=== PATIENT | female | born 2000 | race Caucasian/White ===

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

== ENCOUNTER → 2020-01-01 | Emergency (ER) | payer OTHER ==
[~2020-01-01] VITALS: Ht 165.1 cm; Wt 79.8 kg
[~2020-01-01] MED LIST changes: +DICYCLOMINE HCL10 MG PO; +SPRINTEC1 EACH PO; +ZOFRAN4 MG PO
--- OUTSIDE RECORDS SUMMARY | ~2020-01-01 | XMS | Encounter Summary ---
Demographics + + + | Address | [address] | | | [place] [address] | + + + | Home Phone | | + + + | Preferred Language | Unknown | + + + | Marital Status | Single | + + + | Mosque Affiliation | Unknown | + + + | Race | Unknown | + + + | Ethnic Group | Unknown | + + + Author + + + | Author | [facility] | | | and [place] | + + + | Organization | [facility] | | | and [place] | + + + | Address | Unknown | + + + | Phone | Unavailable | + + + Support + + +---------+ + | Name | Relationship | Address | Phone | + + +---------+ + | Laurie Srivastava | ECON | Unknown | | | Jimbo Latif | | | | + + +---------+ + Care Team Providers + +------+ + | Care Operating Room Specialist Name | Role | Phone | + +------+ + PCP | Unavailable | + +------+ + Encounter Details +--------+ + + + + | Date | Type | Department | Care Team | Description | +--------+ + + + + | 09/07/ | Hospital | [facility] | Marbin Chino MD | | | 2000 - | Encounter | MED CTR NURSE | [address] [facility] | | | | | [address] | [place] | | | 09/08/ | | [place] [address] | [id number] | | | 2000 | | [phone] | | | +--------+ + + + + Social History + +-------+ +--------+------+ | Tobacco Use | Types | Packs/Day | Years | Date | | | | | Used | | + +-------+ +--------+------+ | Never Assessed | | | | | + +-------+ +--------+------+ + + + | Sex Assigned at | Date Recorded | | | | + + + | Not on file | | + + + documented as of this encounter Plan of Treatment Not on filedocumented as of this encounter Visit Diagnoses Not on filedocumented in this encounter"
--- OUTSIDE RECORDS SUMMARY | ~2020-01-01 | XMS | Clinical Summary ---
Demographics + + + | Address | [address] | | | [place] [address] | + + + | Home Phone | | + + + | Preferred Language | Unknown | + + + | Marital Status | Single | + + + | Jain Affiliation | Unknown | + + + | Race | Unknown | + + + | Ethnic Group | Unknown | + + + Author + + + | Author | [facility] | | | and [place] | + + + | Organization | [facility] | | | and [place] | [...] Team Providers + +------+ + | Care Wire Spinner Name | Role | Phone | + +------+ + PCP | Unavailable | + +------+ + Allergies Not on File Medications Not on file Active Problems Not on file Social History + +-------+ +--------+------+ | Tobacco [...] on file | | + + + Last Filed Vital Signs Not on file Plan of Treatment + + +-------+ + | Health Maintenance | Due Date | Last | Comments | | | | Done | | + + +-------+ + | Well Child Check | | | | | | 4 | | | + + +-------+ + | Vaccine: HPV (1 - | | | | | 2-dose series) | 2 | | | + + +-------+ + | Vaccine: | | | | | Dtap/Tdap/Td (1 - | 0 | | | | Tdap) | | | | + + +-------+ + | Vaccine: Influenza | | | | | (#1) | 0 | | | + + +-------+ + Results Not on filefrom Last 3 Months"
--- OUTSIDE RECORDS SUMMARY | 2020-01-01 11:46 | XMS ---
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 Care History Medical/Surgical 09/03/2019 [facility] I spoke with patient - she has a history of no shows in clinic.\T\nbsp; I advised to establish care with a PCP, if not here then [facility].\ T\nbsp; Advised of appropriate use of ED, life and limb use.\T\nbsp; Patient hung up on me. 04/11/2019 [facility] Patient reported to ED after clinic hours.\T\nbsp; Patient will schedule follow up with Cely Mariee. 04/28/2018 [facility] - Patient is currently established with [facility]. If patient is seen in the ED during business hours. Please contact CHWs at [facility]. Care Recommendation: If this patient has had [...] care. E.D. VISIT COUNT (12 MO.) 5 [facility] TOTAL 5 NOTE: Visits indicate total known visits. ED/UCC VISIT TRACKING (12 MO.) 01/01/2020 11:44 [facility] [place] TYPE: Emergency COMPLAINT: - DIZZY, SOB, TIRED 09/01/2019 23:10 [facility] [place] TYPE: Emergency COMPLAINT: - LEG CRAMP,ABD PAIN DIAGNOSES: - Nicotine dependence, unspecified, uncomplicated - Left lower quadrant pain - Cramp and spasm 05/15/2019 18:28 [facility] [place] [facility] [place] TYPE: Emergency COMPLAINT: - COUGH, STOMACH PAIN, CHEST CONGESTION, MSE TO HOME DIAGNOSES: - Other specified symptoms and signs involving the circulatory - Cough - Unspecified abdominal pain 04/10/2019 20:07 [facility] [place] TYPE: Emergency COMPLAINT: - EYE INJURY DIAGNOSES: - Nicotine dependence, unspecified, uncomplicated - Local infection of the skin and subcutaneous tissue, unspecif 01/13/2019 19:08 [facility] [place] TYPE: Emergency COMPLAINT: - ABD PAIN, VAGINAL BLEEDING DIAGNOSES: - Other half-way (current) drug therapy - Nicotine dependence, unspecified, uncomplicated - Abnormal uterine and vaginal bleeding, unspecified - Pelvic and perineal pain INPATIENT VISIT TRACKING (12 MO.) No inpatient visits to display in this time frame [id number]
== END ==
LOC: ED 11:43
DX: B34.9 Viral infection, unspecified (principal); Z87.891 Personal history of nicotine dependence; Z79.899 Other long term (current) drug therapy
CPT/HCPCS: 71045; 80053; 81001; 84703; 85025; 96374; 96375; 99284-25; J1885; J2405; J7030

== ENCOUNTER 2020-11-14 14:23 | Inpatient (IN) | payer OTHER ==
[~2020-11-14] VITALS: Ht 160 cm; Wt 97.5 kg
--- NOTE | 2020-11-15 12:02 | PR ---
[facility] [address] [place], [place] [address] Signed PP Progress Notes Datetime Report Generated by CPN: 11/15/2020 12:02 SUBJECTIVE: [id number] Pain: Within Normal Limits Nausea/Vomiting: Denies Flatus: No Bowel Movement: No Vital Signs: [id number] Vital Signs: Reviewed; Within Normal Limits Cardiovascular: Normal Respiratory: Normal Abdomen/Uterus: Normal Lochia: Normal Breasts: Normal Extremities: Normal Exam Comments: NAD, resting in bed RRR No dyspnea/retractions Abd SNDNT, FFBU Ext: 1+ BLLE pitting edema, Neg Bay's BL IMPRESSION/PLAN/PROCEDURES: [id number] Impression: Normal Progression Plan: Continue Present Management Progress Notes: PPD#1 s/p EIOL @ 39.3 weeks gestation Progressing well : regular diet, bottle feeding baby, cramps well controlled with motrin Hoping to go home either tonight @ 24 hours or tomorrow Has first appt scheduled with [facility] 11/26. Signing Physician: Fazal Reeves DO Copies: ~ *Electronically Signed* 11/15/20 1202 FAZAL REEVES DO PATIENT NAME: ALLIE MORENO PROGRESS NOTE DATE OF : 00 PHYSICIAN: FAZAL REEVES DO RPT #: [id number] REPORT IS CONFIDENTIAL AND NOT TO BE RELEASED WITHOUT AUTHORIZATION
--- NOTE | 2020-11-16 10:13 | PR ---
[facility] [address] [place], [place] [address] Signed PP Progress Notes Datetime Report Generated by CPN: 11/16/2020 10:13 SUBJECTIVE: [id number] Pain: Within Normal Limits Nausea/Vomiting: Denies Flatus: Yes Bowel Movement: Yes Vital Signs: [id number] Vital Signs: Reviewed; Within Normal Limits Cardiovascular: Normal Respiratory: Normal Abdomen/Uterus: Normal Lochia: Normal Vulva/Perineum: Not Done Breasts: Not Done CVA Tenderness: Normal Extremities: Normal Incision: Not Applicable Progress: Not Applicable Exam Comments: Fundus firm U-2 nontender IMPRESSION/PLAN/PROCEDURES: [id number] Impression: Normal Progression Plan: Discharge Progress Notes: Pt seen and examined. Doing well. Ambulating, voiding, and tolerating full diet. Pain and lochia minimal. Bottlefeeding well. No fevers/chills or other concerns. Planning OCPs for pp contraception. No other questions or concerns. Desires d/c home. Signing Physician: Fazal Reeves DO Copies: ~ *Electronically Signed* 11/16/20 1013 FAZAL REEVES DO PATIENT NAME: ALLIE MORENO PROGRESS NOTE DATE OF : 00 PHYSICIAN: FAZAL REEVES DO RPT #: [id number] REPORT IS CONFIDENTIAL AND NOT TO BE RELEASED WITHOUT AUTHORIZATION
== END 2020-11-16 10:40 | disposition home or self-care (01) | DRG 807 ==
LOC: FBC 14:23
PROVIDERS: ADMIT Obstetrics & Gynecology; ATTEND Obstetrics & Gynecology
PROC: 10E0XZZ Delivery of Products of Conception, External Approach (ICD-10-PCS; principal; 2020-11-14)
PROC: 10907ZC Drainage of Amniotic Fluid, Therapeutic from Products of Conception, Via Natural or Artificial Opening (ICD-10-PCS; 2020-11-14)
PROC: 0HQ9XZZ Repair Perineum Skin, External Approach (ICD-10-PCS; 2020-11-14)
PROC: 3E0R3BZ Introduction of Anesthetic Agent into Spinal Canal, Percutaneous Approach (ICD-10-PCS; 2020-11-14)
PROC: 00HU33Z Insertion of Infusion Device into Spinal Canal, Percutaneous Approach (ICD-10-PCS; 2020-11-14)
DX: O62.3 Precipitate labor (principal); Z37.0 Single live birth; O99.214 Obesity complicating childbirth; O70.0 First degree perineal laceration during delivery; E66.9 Obesity, unspecified; O69.81X0 Labor and delivery complicated by cord around neck, without compression, not applicable or unspecified; Z3A.39 39 weeks gestation of pregnancy; Z87.891 Personal history of nicotine dependence
CPT/HCPCS: 01960; 85027; J2590; J2795; J3010; J7121

== ENCOUNTER 2022-06-24 08:24 | Inpatient (IN) | payer OTHER ==
[~2022-06-24] VITALS: Ht 160 cm; Wt 102.1 kg
--- NOTE | 2022-06-24 12:00 | NUR ---
RT COLLECTED RAPID COVID 19 SWAB AT THIS TIME WITH NO COMPLICATIONS.
[2022-06-24 15:49] VITALS: BP 108/53
--- NOTE | 2022-06-25 17:11 | PR ---
[facility] [address] [place], [place] [address] Signed PP Progress Notes Datetime Report Generated by KAYLAN: 06/25/2022 17:11 SUBJECTIVE: [id number] Pain: Within Normal Limits Nausea/Vomiting: Denies Flatus: Yes Vital Signs: [id number] Vital Signs: Reviewed Notable Details: isolated elevated BP at 0454, not severe Cardiovascular: Normal Respiratory: Normal Abdomen/Uterus: Normal Extremities: Normal (Annotations: Data stored by N on behalf of user) Progress: Not Applicable Exam Comments: NAD, sitting up in bed RRR No dyspnea/ retractions Abd SNTND, FFBU, heating pad in place Ext: Trace edema BLLE IMPRESSION/PLAN/PROCEDURES: [id number] Impression: Normal Progression Plan: Continue Present Management Progress Notes: 21 yo PPD#1 s/p Uncomplicated -admitted for spontaneous labor -h/o missing IUD at time of conception, ultrasound negative. A/P abdominal x-ray negative for foreign body/ IUD, lateral view read pending -hgb 10.8 from 12.4 Progressing well . Cramping well controlled with ibuprofen, norco, heat pack. Requesting stay one more night. Lochia light, formula feeding. Anticipate DC to home tomorrow Signing Physician: Fazal Reeves DO Copies: ~ *Electronically Signed* 06/25/22 8802 FAZAL REEVES DO PATIENT NAME: ALLIE MORENO PROGRESS NOTE DATE OF : 00 PHYSICIAN: FAZAL REEVES DO RPT #: [id number] REPORT IS CONFIDENTIAL AND NOT TO BE RELEASED WITHOUT AUTHORIZATION
--- NOTE | 2022-06-26 09:20 | PR ---
[facility] [address] [place], [place] [address] Signed PP Progress Notes Datetime Report Generated by CPKatia: 06/26/2022 09:20 SUBJECTIVE: [id number] Pain: Within Normal Limits Nausea/Vomiting: Denies Flatus: Yes Vital Signs: [id number] Vital Signs: Reviewed Notable Details: mild elevation BP Cardiovascular: Not Done Respiratory: Not Done Abdomen/Uterus: Abnormal Lochia: Normal Vulva/Perineum: Not Done Breasts: Not Done CVA Tenderness: Not Done Extremities: Normal Incision: Not Applicable Progress: Not Applicable Exam Comments: Fundus firm, NT @ U-2. IMPRESSION/PLAN/PROCEDURES: [id number] Impression: Normal Progression Plan: Discharge Procedures: None Progress Notes: Doing well overall. I think she is stable for D/C. Signing Physician: Manuela Love MD Copies: ~ *Electronically Signed* 06/26/22919 MANUELA LOVE MD PATIENT NAME: ALLIE MORENO PROGRESS NOTE DATE OF : 00 PHYSICIAN: MANUELA LOVE MD RPT #: [id number] REPORT IS CONFIDENTIAL AND NOT TO BE RELEASED WITHOUT AUTHORIZATION
== END 2022-06-26 11:50 | disposition home or self-care (01) | DRG 807 ==
LOC: FBCO 08:24 → FBC 11:40
PROVIDERS: ADMIT Obstetrics & Gynecology; ATTEND Obstetrics & Gynecology
PROC: 10E0XZZ Delivery of Products of Conception, External Approach (ICD-10-PCS; principal; 2022-06-24)
PROC: 10907ZC Drainage of Amniotic Fluid, Therapeutic from Products of Conception, Via Natural or Artificial Opening (ICD-10-PCS; 2022-06-24)
PROC: 00HU33Z Insertion of Infusion Device into Spinal Canal, Percutaneous Approach (ICD-10-PCS; 2022-06-24)
PROC: 3E0234Z Introduction of Serum, Toxoid and Vaccine into Muscle, Percutaneous Approach (ICD-10-PCS; 2022-06-24)
DX: O99.214 Obesity complicating childbirth (principal); Z37.0 Single live birth; Z67.10 Type A blood, Rh positive; Z20.822 Contact with and (suspected) exposure to COVID-19; O99.824 Streptococcus B carrier state complicating childbirth; O69.81X0 Labor and delivery complicated by cord around neck, without compression, not applicable or unspecified; O99.02 Anemia complicating childbirth; D64.9 Anemia, unspecified
CPT/HCPCS: 01960; 36415; 59025; 74018; 80053; 82565; 82570; 83615; 84156; 84550; 85027; 85060; 86850; 86900; 86901; 87502; A9270; C9803; G0463; J2540; J2590; J2795; J3010; J7121; U0003

== ENCOUNTER 2022-09-23 11:16 | Emergency (ER) | payer OTHER ==
[~2022-09-23] VITALS: Ht 152.4 cm; Wt 92.9 kg
--- OUTSIDE RECORDS SUMMARY | ~2022-09-23 | XMS | Continuity of Care Document ---
Demographics + + + | Address | [address] | | | [place] [address] | + + + | Preferred Language | Unknown | + + + | Marital Status | Never | + + + | Holiness Affiliation | Unknown | + + + | Race | White | + + + | Ethnic Group | Not or | + + + Author + + + | Author | [facility] | + + + | Organization | [facility] | + + + | Address | [address] | | | [place] [address] | + + + | Phone | | + + + Care Team Providers + + + + | Care Mobile Pet Groomer Name | Role | Phone | + + + + Unavailable | Unavailable | + + + + Unavailable | Unavailable | + + + + Allergies No information. Encounters No information. Functional Status No information. Immunizations No information. Medications + + + + | date | description | facility | + + + + | 2020-01-01 00:00 | ONDANSETRON HCL | [facility] | + + + + | 2019-04-10 00:00 | DOXYCYCLINE HYCLATE | [facility] | + + + + | 2015-12-06 00:00 | IBUPROFEN | [facility] | + + + + | 2022-06-26 00:00 | IBUPROFEN | [facility] | + + + + | 2018-04-27 00:00 | OMEPRAZOLE | [facility] | + + + + | 2022-06-26 00:00 | FLUCONAZOLE | [facility] | + + + + | 2019-04-10 00:00 | TOBRAMYCIN | [facility] | + + + + | 2022-06-26 00:00 | ACETAMINOPHEN | [facility] | + + + + | 2022-06-26 00:00 | NORGESTIMATE-ETHINYL | [facility] | | | ESTRADIOL | | + + + + | 2019-01-13 00:00 | TRAMADOL HCL | [facility] | + + + + | 2015-12-06 00:00 | HYDROCODONE | [facility] | | | BIT/ACETAMINOPHEN | | + + + + | 2020-01-01 00:00 | DICYCLOMINE HCL | [facility] | + + + + Problems + + + + | date | description | facility | + + + + | 2014-03-06 00:00 | Patient left without being | [facility] | | | seen | | + + + + | 2014-03-08 00:00 | Low back pain | [facility] | + + + + | 2014-12-18 00:00 | Chronic low back pain | [facility] | + + + + | 2015-12-06 00:00 | Laceration of left earlobe | [facility] | | | | | + + + + | 2015-12-06 00:00 | Laceration of left cheek | [facility] | + + + + | 2015-12-06 00:00 | Sprain of left shoulder | [facility] | + + + + | 2015-12-19 00:00 | Encounter for removal of | [facility] | | | sutures | | + + + + | 2016-12-31 00:00 | Vaginal bleeding | [facility] | + + + + | 2018-04-27 00:00 | Peptic disease | [facility] | + + + + | 2018-10-17 00:00 | Sprain of right wrist | [facility] | + + + + | 2019-01-13 00:00 | Abnormal uterine bleeding | [facility] | + + + + | 2019-05-15 00:00 | Encounter for medical | [facility] | | | screening examination | | + + + + | 2019-09-02 00:00 | Abdominal pain | [facility] | + + + + | 2019-09-02 00:00 | Muscle cramps | [facility] | + + + + | 2020-01-01 00:00 | Viral infection | [facility] | + + + + Procedures No information. Results/Labs +--------+--------+ +---------+--------+---------+ | test | date | facility | value | unit | notes | +--------+--------+ +---------+--------+---------+ + + | Result panel 1 | + + + + + + +---------+ + | | 2022-06-24 | [facility] | 152.81 | mg/dL | (missing) | | (unavailable | 09[facility]:07 [facility] | | | + + + + +---------+ + + + | Result panel 2 | + + + + + + + + + | | 2022-06-24 | [facility] | 0.1500 | (missing) | (missing) | | (unavailable | [facility]00:07 [facility] | | | | + + + + + + + + + | Result panel 3 | + + + + + +------+---------+ + | | 2022-06-24 | [facility] | 23 | mg/dL | (missing) | | (unavailable | [facility]00:07 [facility] | | | | + + + +------+---------+ + + + | Result panel 4 | + + + + + + + + + | | 2022-06-24 | [facility] | NEGATIVE | (missing) | (missing) | | (unavailable | [facility]00:07 [facility] | | | | + + + + + + + + + | Result panel 5 | + + + + + + + + + | | 2022-06-24 | [facility] | NEGATIVE | (missing) | (missing) | | (unavailable | [facility]00:07 [facility] | | | | + + + + + + + + + | Result panel 6 | + + + + + + + + + | | 2022-06-24 | [facility] | NEGATIVE | (missing) | (missing) | | (unavailable | [facility]00:07 [facility] | | | | + + + + + + + + + | Result panel 7 | + + + + + + + + + | | 2022-06-24 | [facility] | NEGATIVE | (missing) | (missing) | | (unavailable | [facility]:00:07 [facility] | | | | + + + + + + + + + | Result panel 8 | + + + + + + + + + | | 2022-06-24 | [facility] | NEGATIVE | (missing) | (missing) | | (unavailable | 09[facility]00:07 [facility] | | | | + + + + + + + + + | Result panel 9 | + + + + + + + + + | | 2022-06-24 | [facility] | NEGATIVE | (missing) | (missing) | | (unavailable | 09[facility]00:07 [facility] | | | | + + + + + + + + + | Result panel 10 | + + + + + + + + + | | 2022-06-24 | [facility] | NEGATIVE | (missing) | (missing) | | (unavailable | [facility]00:07 [facility] | | | | + + + + + + + + + | Result panel 11 | + + + + + + + + + | | 2022-06-24 | [facility] | NEGATIVE | (missing) | (missing) | | (unavailable | [facility]00:07 [facility] | | | | + + + + + + + + + | Result panel 12 | + + + + + + + + + | | 2022-06-24 | [facility] | NEGATIVE | (missing) | (missing) | | (unavailable | 09:00:07 [facility] | | | | + + + + + + + + + | Result panel 13 | + + + + + + + + + | | 2022-06-24 | [facility] | NEGATIVE | (missing) | (missing) | | (unavailable | [facility]00:07 [facility] | | | | + + + + + + + + + | Result panel 14 | + + + + + + + + + | | 2022-06-24 | [facility] | NEGATIVE | (missing) | (missing) | | (unavailable | 09[facility]00:07 [facility] | | | | + + + + + + + + + | Result panel 15 | + + + + + + + + + | | 2022-06-24 | [facility] | NEGATIVE | (missing) | (missing) | | (unavailable | 09:00:07 [facility] | | | | + + + + + + + + + | Result panel 16 | + + + + + + + + + | | 2022-06-24 | [facility] | NEGATIVE | (missing) | (missing) | | (unavailable | 09:00:07 [facility] | | | | + + + + + + + + + | Result panel 17 | + + + + + + + + + | | 2022-06-24 | [facility] | NEGATIVE | (missing) | (missing) | | (unavailable | 12:00:07 [facility] | | | | + + + + + + + + + | Result panel 18 | + + + + + + + + + | | 2022-06-24 | [facility] | NEGATIVE | (missing) | (missing) | | (unavailable | 12:00:07 [facility] | | | | + + + + + + + + + | Result panel 19 | + + + + + + + + + | | 2022-06-24 | [facility] | NEGATIVE | (missing) | (missing) | | (unavailable | 12:00:07 [facility] | | | | + + + + + + + + + | Result panel 20 | + + + + + + + + + | | 2022-06-24 | [facility] | NEGATIVE | (missing) | (missing) | | (unavailable | 12:00:07 [facility] | | | | + + + + + + + + + | Result panel 21 | + + + + + + + + + | | 2022-06-24 | [facility] | SEE | (missing) | (missing) | | (unavailable | 12::07 | [facility] COMMENTS | | | | ) | | Hospital | | | | + + + + + + + + + | Result panel 22 | + + + + + +------+ + + | | 2022-06-24 | [facility] | 20 | (missing) | (missing) | | (unavailable | 12::07 [facility] | | | | + + + +------+ + + + + | Result panel 23 | + + + + + +--------+ + + | | 2022-06-24 | [facility] | 15.9 | (missing) | (missing) | | (unavailable | 12::07 [facility] | | | | + + + +--------+ + + + + | Result panel 24 | + + + + + +-------+---------+ + | | 2022-06-24 | [facility] | 4.7 | mg/dL | (missing) | | (unavailable | 12::07 [facility] | | | | + + + +-------+---------+ + + + | Result panel 25 | + + + + + +-------+---------+ + | | 2022-06-24 | [facility] | 9.0 | mg/dL | (missing) | | (unavailable | 12::07 [facility] | | | | + + + +-------+---------+ + + + | Result panel 26 | + + + + + +-------+ + + | | 2022-06-24 | [facility] | 6.9 | (missing) | (missing) | | (unavailable | 12:05:07 [facility] | | | | + + + +-------+ + + + + | Result panel 27 | + + + + + +-------+ + + | | 2022-06-24 | [facility] | 3.0 | (missing) | (missing) | | (unavailable | 12::07 [facility] | | | | + + + +-------+ + + + + | Result panel 28 | + + + + + +-------+ + + | | 2022-06-24 | [facility] | 3.9 | (missing) | (missing) | | (unavailable | :07 | [facility] | | | | + + + +-------+ + + + + | Result panel 29 | + + + + + +--------+ + + | | 2022-06-24 | [facility] | 0.77 | (missing) | (missing) | | (unavailable | ::07 | [facility] | | | | + + + +--------+ + + + + | Result panel 30 | + + + + + +-------+ + + | | 2022-06-24 | [facility] | 0.4 | (missing) | (missing) | | (unavailable | 12::07 [facility] | | | | + + + +-------+ + + + + | Result panel 31 | + + + + + +------+ + + | | 2022-06-24 | [facility] | 20 | (missing) | (missing) | | (unavailable | 12:05:07 [facility] | | | | + + + +------+ + + + + | Result panel 32 | + + + + + +------+---------+ + | | 2022-06-24 | [facility] | 82 | mg/dL | (missing) | | (unavailable | 12:05:07 [facility] | | | | + + + +------+---------+ + + + | Result panel 33 | + + + + + +------+ + + | | 2022-06-24 | [facility] | 17 | (missing) | (missing) | | (unavailable | ::07 | [facility] | | | | + + + +------+ + + + + | Result panel 34 | + + + + + +-------+ + + | | 2022-06-24 | [facility] | 187 | (missing) | (missing) | | (unavailable | 12:05:07 [facility] | | | | + + + +-------+ + + + + | Result panel 35 | + + + + + +-------+ + + | | 2022-06-24 | [facility] | 195 | (missing) | (missing) | | (unavailable | 12:05:07 [facility] | | | | + + + +-------+ + + + + | Result panel 36 | + + + + + +-----+---------+ + | | 2022-06-24 | [facility] | 6 | mg/dL | (missing) | | (unavailable | 12:05:07 [facility] | | | | + + + +-----+---------+ + + + | Result panel 37 | + + + + + +--------+---------+ + | | 2022-06-24 | [facility] | 0.54 | mg/dL | (missing) | | (unavailable | [facility] | | | | + + + +--------+---------+ + + + | Result panel 38 | + + + + + +-----+ + + | | 2022-06-24 | [facility] | A | (missing) | (missing) | | (unavailable | [facility] | | | | + + + +-----+ + + + + | Result panel 39 | + + + + + + + + + | | 2022-06-24 | [facility] | POSITIVE | (missing) | (missing) | | (unavailable | 12::07 [facility] | | | | + + + + + + + + + | Result panel 40 | + + + + + + + + + | | 2022-06-24 | [facility] | NEGATIVE | (missing) | (missing) | | (unavailable | 12::07 [facility] | | | | + + + + + + + + + | Result panel 41 | + + + + + + + + + | | 2022-06-24 | [facility] | BLOOD IN | (missing) | (missing) | | (unavailable | 12:05:07 [facility] | | | | + + + + + + + + + | Result panel 42 | + + + + + +-------+ + + | | 2022-06-24 | [facility] | 134 | (missing) | (missing) | | (unavailable | 12:05:07 [facility] | | | | + + + +-------+ + + + + | Result panel 43 | + + + + + +---------+ + + | | 2022-06-24 | [facility] | 11.11 | (missing) | (missing) | | (unavailable | 12:05:07 [facility] | | | | + + + +---------+ + + + + | Result panel 44 | + + + + + +-------+ + + | | 2022-06-24 | [facility] | 135 | (missing) | (missing) | | (unavailable | 12:05:07 [facility] | | | | + + + +-------+ + + + + | Result panel 45 | + + + + + +-------+ + + | | 2022-06-24 | [facility] | 3.9 | (missing) | (missing) | | (unavailable | 12:05:07 [facility] | | | | + + + +-------+ + + + + | Result panel 46 | + + + + + +-------+ + + | | 2022-06-24 | [facility] | 103 | (missing) | (missing) | | (unavailable | 12::07 [facility] | | | | + + + +-------+ + + + + | Result panel 47 | + + + + + +--------+ + + | | 2022-06-25 | [facility] | 17.9 | (missing) | (missing) | | (unavailable | 06:07:07 [facility] | | | | + + + +--------+ + + + + | Result panel 48 | + + + + + +--------+ + + | | 2022-06-25 | [facility] | 3.82 | (missing) | (missing) | | (unavailable | 06:07:07 [facility] | | | | + + + +--------+ + + + + | Result panel 49 | + + + + + +--------+ + + | | 2022-06-25 | [facility] | 10.8 | (missing) | (missing) | | (unavailable | 06:07:07 [facility] | | | | + + + +--------+ + + + + | Result panel 50 | + + + + + +--------+ + + | | 2022-06-25 | [facility] | 33.3 | (missing) | (missing) | | (unavailable | 06:07:07 [facility] | | | | + + + +--------+ + + + + | Result panel 51 | + + + + + +--------+ + + | | 2022-06-25 | [facility] | 87.1 | (missing) | (missing) | | (unavailable | 06:07:07 [facility] | | | | + + + +--------+ + + + + | Result panel 52 | + + + + + +--------+ + + | | 2022-06-25 | [facility] | 28.4 | (missing) | (missing) | | (unavailable | 06:07:07 [facility] | | | | + + + +--------+ + + + + | Result panel 53 | + + + + + +--------+ + + | | 2022-06-25 | [facility] | 32.5 | (missing) | (missing) | | (unavailable | 06:07:07 [facility] | | | | + + + +--------+ + + + + | Result panel 54 | + + + + + +--------+ + + | | 2022-06-25 | [facility] | 14.2 | (missing) | (missing) | | (unavailable | 06:07:07 [facility] | | | | + + + +--------+ + + + + | Result panel 55 | + + + + + +-------+ + + | | 2022-06-25 | [facility] | 185 | (missing) | (missing) | | (unavailable | 06:07:07 [facility] | | | | + + + +-------+ + + Social History No information. Vital Signs + + + +---------+ | date | measurement | value | units | + + + +---------+ | 2022-06-24 00:00 | BMI | 39.9 | kg/m2 | + + + +---------+ | 2022-06-24 00:00 | BP_diastolic | 53 | mmHg | + + + +---------+ | 2022-06-24 00:00 | BP_systolic | 108 | mmHg | + + + +---------+ | 2022-06-24 00:00 | height_metric | 160 | cm | + + + +---------+ | 2022-06-24 00:00 | height_standard | 62.99 | in | + + + +---------+ | 2022-06-24 00:00 | weight_metric | 102.1 | kg | + + + +---------+ | 2022-06-24 00:00 | weight_standard | 225.09 | lb | + + + +---------+"
--- OUTSIDE RECORDS SUMMARY | ~2022-09-23 | XMS | Continuity of Care Document ---
Demographics + + + | Address | [address] | | | [place] [address] | + + + | Preferred Language | Unknown | + + + | Marital Status | Never | + + + | Scientologist Affiliation | Unknown | + + + | Race | White | + + + | Ethnic Group | Not or | + + + Author + + + | Author | [facility] | + + + | Organization | [facility] | + + + | Address | [address] | | | [place] [address] | + + + | Phone | | + + + Care Team Providers + + + + | Care Manager Fine Name | Role | Phone | + + + + Unavailable | Unavailable | + + + + Unavailable | Unavailable | + + + + Allergies No information. Encounters No information. Functional Status No information. Immunizations No information. Medications + + + + | date | description | facility | + + + + | 2020-01-01 00:00 | ONDANSETRON HCL | [facility] | + + + + | 2019-04-10 00:00 | DOXYCYCLINE HYCLATE | [facility] | + + + + | 2015-12-06 00:00 | IBUPROFEN | [facility] | + + + + | 2022-06-26 00:00 | IBUPROFEN | [facility] | + + + + | 2018-04-27 00:00 | OMEPRAZOLE | [facility] | + + + + | 2022-06-26 00:00 | FLUCONAZOLE | [facility] | + + + + | 2019-04-10 00:00 | TOBRAMYCIN | [facility] | + + + + | 2022-06-26 00:00 | ACETAMINOPHEN | [facility] | + + + + | 2022-06-26 00:00 | NORGESTIMATE-ETHINYL | [facility] | | | ESTRADIOL | | + + + + | 2019-01-13 00:00 | TRAMADOL HCL | [facility] | + + + + | 2015-12-06 00:00 | HYDROCODONE | [facility] | | | BIT/ACETAMINOPHEN | | + + + + | 2020-01-01 00:00 | DICYCLOMINE HCL | [facility] | + + + + Problems + + + + | date | description | facility | + + + + | 2014-03-06 00:00 | Patient left without being | [facility] | | | seen | | + + + + | 2014-03-08 00:00 | Low back pain | [facility] | + + + + | 2014-12-18 00:00 | Chronic low back pain | [facility] | + + + + | 2015-12-06 00:00 | Laceration of left earlobe | [facility] | | | | | + + + + | 2015-12-06 00:00 | Laceration of left cheek | [facility] | + + + + | 2015-12-06 00:00 | Sprain of left shoulder | [facility] | + + + + | 2015-12-19 00:00 | Encounter for removal of | [facility] | | | sutures | | + + + + | 2016-12-31 00:00 | Vaginal bleeding | [facility] | + + + + | 2018-04-27 00:00 | Peptic disease | [facility] | + + + + | 2018-10-17 00:00 | Sprain of right wrist | [facility] | + + + + | 2019-01-13 00:00 | Abnormal uterine bleeding | [facility] | + + + + | 2019-05-15 00:00 | Encounter for medical | [facility] | | | screening examination | | + + + + | 2019-09-02 00:00 | Abdominal pain | [facility] | + + + + | 2019-09-02 00:00 | Muscle cramps | [facility] | + + + + | 2020-01-01 00:00 | Viral infection | [facility] | + + + + Procedures No [...]
[2022-09-23] MEDS ORDERED: PENICILLIN V P500 MG PO (13:18)
[2022-09-23 13:30] VITALS: BP 119/67
== END 2022-09-23 13:32 | disposition home or self-care (01) ==
LOC: ED 11:16
DX: J02.0 Streptococcal pharyngitis (principal)
CPT/HCPCS: 87651; A9270; J8540

== ENCOUNTER 2022-11-29 17:41 | Emergency (ER) | payer OTHER ==
[~2022-11-29] VITALS: Ht 152.4 cm; Wt 91.1 kg
[~2022-11-29 17:41] MED LIST changes: +PENICILLIN V P500 MG PO
[2022-11-29 21:55] VITALS: BP 119/59
== END 2022-11-29 21:56 | disposition home or self-care (01) ==
LOC: ED 17:41
DX: S06.0X0A Concussion without loss of consciousness, initial encounter (principal); S16.1XXA Strain of muscle, fascia and tendon at neck level, initial encounter; S39.012A Strain of muscle, fascia and tendon of lower back, initial encounter; V43.52XA Car driver injured in collision with other type car in traffic accident, initial encounter; Z88.0 Allergy status to penicillin
CPT/HCPCS: 70450; 72070; 72100; 72125; 84703; 99284-25

== ENCOUNTER 2024-11-21 16:50 | Emergency (ER) | payer OTHER ==
[~2024-11-21] VITALS: Ht 160 cm; Wt 92.0 kg
[~2024-11-21 16:50] MED LIST changes: +CYCLOBENZAPRINE10 MG PO; +GABAPENTIN100 MG PO; +GABAPENTIN300 MG PO; +METHYLPREDNISOLO4 M1 PO; +PHENTERMINE HCL15 MG PO; +PHENTERMINE HCL30 MG PO; +PREDNISONE20 MG PO; +VENTOLIN HFA18 GM INH
[2024-11-21 18:21] LABS: BASOPHILS 0.5 % (0.1-1.2); EOSINOPHILS 1.6 % (0.7-5.8); LYMPHOCYTES 28.2 % (19.3-51.7); MCH 29.9 PG (25.6-32.2); MCHC 32.9 g/dL (32.2-35.5); MCV 90.9 fL (79.4-94.8); MONOCYTES 6.6 % (4.7-12.5); NEUTROPHILS 62.7 % (34.0-71.1); RBC 4.38 M/uL (3.93-5.22)
[2024-11-21 18:22] LABS: BLOOD/HGB, URINE NEGATIVE (Negative); KETONE, URINE NEGATIVE (Negative); LEUK ESTERASE, URINE SMALL (negative); NITRITE, URINE NEGATIVE (negative)
[2024-11-21 18:28] LABS: BACTERIA, URINE RARE /hpf (negative); CASTS, URINE NONE SEEN \\lpf; CRYSTALS, URINE NONE SEEN (0-1+); EPITHELIAL CELLS, URINE SQUAMOUS 3+ /lpf (0-1+); REFLEX CULTURE, URINE No (No)
[2024-11-21 18:40] LABS: ALT (SGPT) 82.0 U/L (14-59); AST (SGOT) 50.0 U/L (15-37); GLOMERULAR FILTRATION RATE,EST 127.0 mL/min (>60); PROTEIN, TOTAL 7.0 g/dL (6.4-8.2); UREA NITROGEN 15.0 mg/dL (7-18)
[2024-11-21] MEDS ORDERED: MACROBID 100 M100 MG PO (18:55)
[2024-11-21] MEDS ORDERED: ONDANSETRON ODT4 MG PO (18:55)
[2024-11-21] MEDS ORDERED: ONDANSETRON 4 MG HOME.PACK SL ONE (19:00)
[2024-11-21 19:13] VITALS: BP 128/81
== END 2024-11-21 19:14 | disposition home or self-care (01) ==
LOC: ED 16:50
PROVIDERS: Emergency Medicine
DX: K52.9 Noninfective gastroenteritis and colitis, unspecified (principal); N30.00 Acute cystitis without hematuria; Z79.899 Other long term (current) drug therapy; Z91.041 Radiographic dye allergy status
CPT/HCPCS: 36415; 80053; 81001; 83690; 83735; 84703; 85025; 99284; A9270